=== PATIENT | female | born 1995 | race American Indian/Alaskan Native ===

== ENCOUNTER 2021-01-28 09:59 | Day surgery (SDC) | payer MEDICAID ==
--- NOTE | 2021-01-26 09:42 | History and Physical Report ---
History of Present Illness Date of examination: 01/28/21 History of present illness: Pt is a that has been followed since last week for suspected SAB. No more VB. RH pos. PT was 6w 6 days on 01/24 and U/S then showed No FHT and just showed retained POCs. No pelvic pain or fever currently. Past History Past Medical History: asthma Past Surgical History: no surgical history Social history: no significant social history Medications and Allergies Allergies Allergy/AdvReac Type Severity Reaction Status Date / Time No Known Allergies Allergy Unverified 01/26/21 11:28 Home Medications Medication Instructions Recorded Confirmed Last Taken Type No Known Home Medications [No 01/26/21 01/26/21 Unknown History Reported Home Medications] Review of Systems All systems: negative (except HPI) - Vital Signs Vital signs: see EMR charting - Physical Exam Cardiovascular: Regular rate, No murmurs Lungs: Positive: Clear to auscultation, Normal air movement Genitourinary (Female): Positive: other (exam deferred to the OR) Results All other labs normal. Assessment and Plan - Patient Problems (1) SAB (spontaneous ) Current Visit: No Status: Acute Plan to address problem: Pt for Suction D&C completion on 01/28/21. Patient fully consented for the surgery. Risks, benefits, and alternatives were all discussed with the patient including risk of bleeding, infection, and potential for injury. Patient understands and accepts these risks. Patient agrees to proceed with surgery. All questions were answered.
[~2021-01-28 09:59] MED LIST: ACETAMINOPHEN 500 MG TAB PO SCH; LACTATED RINGERS 1,000 ML IV SCH; MIDAZOLAM 2 MG/2 ML INJ IV NR
[2021-01-28] MEDS ORDERED: ONDANSETRON 4 MG/2 ML INJ IV PRN (11:08)
[2021-01-28] MEDS ORDERED: HYDROmorphone 1 MG/1 ML INJ IV PRN (11:08)
[2021-01-28] MEDS ORDERED: HYDROcodone/ACETAMINOPHEN 5-325 MG TAB PO PRN (11:08)
--- NOTE | 2021-01-28 11:08 | Anesthesia Day of Surgery ---
Anesthesia Day of Surgery - Day of Surgery Patient Examined: Yes Patient H&P Reviewed: Yes Patient is NPO: Yes
--- NOTE | 2021-01-28 11:08 | Anesthesia Consultation ---
Anesthesia Consult and Med Hx Date of service: 01/28/21 - Airway Anesthetic Teeth Evaluation: Good ROM Head & Neck: Adequate Mental/Hyoid Distance: Adequate Mallampati Class: Class I Intubation Access Assessment: Good - Pre-Operative Health Status ASA Pre-Surgery Classification: ASA2 Proposed Anesthetic Plan: General - Pulmonary Hx Smoking: No Hx Asthma: Yes (no inhaler use in many years) Hx Respiratory Symptoms: No - Cardiovascular System Hx Hypertension: No - Central Nervous System CVA: No - Gastrointestinal Hx Gastroesophageal Reflux Disease: No - Endocrine Hx Renal Disease: No Hx Liver Disease: No Hx Insulin Dependent Diabetes: No Hx Non-Insulin Dependent Diabetes: No Hx Thyroid Disease: No
[2021-01-28] MEDS ORDERED: dexAMETHasone 20 MG/5 ML VIAL ONE (12:30)
[2021-01-28] MEDS ORDERED: ONDANSETRON 4 MG/2 ML INJ ONE (12:30)
--- NOTE | 2021-01-28 12:33 | Post Operative Note ---
Date of procedure: 01/28/21 Pre-op diagnosis: incomplete AB Post-op diagnosis: same Findings: Positive small amount of products of conception. Uterus was AV. Procedure: Indication: 25-year-old G1, P0 who had an ultrasound on 01/24/2021 showing retained products measuring 6 weeks 6 days. No heart tones. As result patient is for suction D&C completion. Findings: Positive products of conception were suctioned. Procedure: Patient taken to the operating room and prepped and draped in usual fashion. A ring forcep placed on the anterior lip of the cervix. An 7 [place] suction catheter was chosen. Suction curette placed in the endometrial cavity. Suction curettage was performed until no more products of conception were able to be suctioned out and no more active bleeding was noted. Bimanual exam was done at the end of the case and the uterus palpated firm. Ring forcep removed from at lip of the cervix and good hemostasis noted throughout. The procedure was concluded at this point. Patient tolerated procedure well. All instrument and lap counts were correct. Patient taken to the recovery in stable condition. Anesthesia: GETA Surgeon: SCAR FERRELL Estimated blood loss: minimal Pathology: list (POCs) Specimen disposition: to lab Condition: stable Disposition: PACU
--- NOTE | 2021-01-28 12:34 | Short Stay Summary ---
Short Stay Documentation Date of service: 01/28/21 Narrative H&P: Patient is status post suction D&C on 01/28/2021. Surgery was uncomplicated. Please see operative report and H&P for details. Patient sent home in stable condition and instructed to follow-up in the office in 4 weeks. - History H&P: dictated Social history: no significant social history - Allergies and Medications Current Medications: Allergies No Known Allergies Allergy (Unverified 01/26/21 11:28) Home Medications Medication Instructions Recorded Confirmed Last Taken Type No Known Home Medications [No 01/26/21 01/26/21 Unknown History Reported Home Medications] Active Medications Acetaminophen (Acetaminophen 500 Mg Tab) 1,000 mg PO PREOP ANIL Stop: 01/28/21 23:59 Hydrocodone Bitart/Acetaminophen (Hydrocodone/Acetaminophen 5-325 Mg Tab) 2 each PO ONCE PRN PRN Reason: Pain, Moderate (4-6) Stop: 01/28/21 16:00 Hydromorphone HCl (Hydromorphone 1 Mg/1 Ml Inj) 0.5 mg IV Q10MIN PRN PRN Reason: Pain , Severe (7-10) Stop: 01/28/21 23:00 Lactated Ringer's (Lactated Ringers) 1,000 mls @ 100 mls/hr IV DIRECT ANIL Stop: 01/28/21 23:59 Midazolam HCl (Midazolam 2 Mg/2 Ml Inj) 2 mg IV PREOP NR Stop: 01/28/21 23:59 Ondansetron HCl (Ondansetron 4 Mg/2 Ml Inj) 4 mg IV ONCE PRN PRN Reason: Nausea And Vomiting Stop: 01/28/21 16:00 - Disposition Condition at discharge: Stable Disposition: DC-01 TO HOME OR SELFCARE - Discharge Diagnoses (1) SAB (spontaneous ) Status: Acute Short Stay Discharge Plan Follow up with: SCAR FERRELL MD [Staff Physician] - 02/28/21
[2021-01-28] MEDS ORDERED: fentaNYL 100 MCG/2 ML INJ ONE (12:39)
[2021-01-28] MEDS ORDERED: propofoL 200 MG/20 ML VIAL IV ONE (12:39)
[2021-01-28] MEDS ORDERED: LIDOCAINE MPF (2%) 20 MG/1 ML VIAL 5 ML ONE (12:39)
[2021-01-28 15:50] VITALS: BP 130/80
--- NOTE | 2021-01-28 22:33 | Post Anesthesia Evaluation ---
- Post Anesthesia Evaluation Patient Participated: Yes Airway Patent: Yes Stable Respiratory Function: Yes Nausea/Vomiting: No Temp > 96.8F: Yes Pain Manageable: Yes Adequeate Hydration: Yes Anesthesia Complications: No
== END 2021-01-28 10:00 | disposition home or self-care (01) ==
LOC: OR 09:59
PROVIDERS: ATTEND Obstetrics & Gynecology
DX: O03.4 Incomplete spontaneous abortion without complication (principal); O02.89 Other abnormal products of conception; G43.909 Migraine, unspecified, not intractable, without status migrainosus; J45.909 Unspecified asthma, uncomplicated; Z98.890 Other specified postprocedural states
CPT/HCPCS: 59812; 88305; J1100; J1170; J2250; J2405; J2704; J3010; J7120